=== PATIENT | male | born 1980 | race Caucasian/White ===

== ENCOUNTER 2019-09-13 10:45 | Emergency (ER) | payer SELFPAY ==
[~2019-09-13] VITALS: Ht 170.2 cm; Wt 65.8 kg
[2019-09-13] MEDS ORDERED: ETOMIDATE 20 MG/ 10 ML VIAL (AMIDATE) IVP ONE (10:46)
[2019-09-13 10:55] VITALS: BP_SYST 130
[2019-09-13] MEDS ORDERED: ASPIRIN 81 MG TAB.CHEW ONE (11:12)
[2019-09-13] MEDS ORDERED: ASPIRIN 300 MG/SUPP.RECT SUPP RC ONE (11:15)
[2019-09-13] MEDS ORDERED: METOPROLOL TARTRATE 5 MG/5 ML VIAL IVP ONE (11:15)
[2019-09-13] MEDS ORDERED: PROPOFOL DRIP 100 ML IV ONE (11:15)
[2019-09-13 11:26] LABS: BASOPHILS % (AUTO) 0.3 % (0.0-2.0); EOSINOPHILS # (AUTO) 0.1 K/uL (0.0-0.4); EOSINOPHILS % (AUTO) 0.7 % (0.0-4.0); HEMATOCRIT 45.8 % (36-54); HEMOGLOBIN 15.3 g/dL (14.0-18.0); LYMPHOCYTES # (AUTO) 3.7 K/uL (1.0-5.5); MEAN CORPUSCULAR HEMOGLOBIN 32 pg (27-31); MEAN CORPUSCULAR HGB CONC 34 % (32-36); MEAN CORPUSCULAR VOLUME 96 fL (79.0-98.0); MONOCYTES # (AUTO) 0.5 K/uL (0.0-1.0); MONOCYTES % (AUTO) 5.4 % (1.7-9.3); NEUTROPHILS # (AUTO) 5.2 K/uL (1.8-7.7); NEUTROPHILS % (AUTO) 54.6 % (40.0-70.0); PLATELET COUNT (AUTO) 305 K/uL (130-430); RED CELL DISTRIBUTION WIDTH 12.6 % (9.0-15.0); WHITE BLOOD COUNT (AUTO) 9.4 K/uL (4.8-10.8)
[2019-09-13 11:48] LABS: ALBUMIN 3.9 g/dL (3.4-4.8); CALCIUM 9.2 mg/dL (8.4-11.0); CREATININE 1.44 mg/dL (0.55-1.30); INR 1.1 (0.80-1.20); TOTAL BILIRUBIN 0.6 mg/dL (0.0-1.0)
[2019-09-13 11:51] LABS: POTASSIUM 2.6 mmol/L (3.5-5.1)
[2019-09-13 11:59] VITALS: BP_SYST 100
== END 2019-09-13 11:47 | disposition short-term general hospital (02) ==
LOC: SED 10:45
DX: Z02.83 Encounter for blood-alcohol and blood-drug test (principal)
CPT/HCPCS: 36415; 71045; 80053; 83880; 84484; 85025; 85379; 85610; 85730; 92950; 96365; 96375; 99285; J3490